=== PATIENT | female | born 1990 | race African-American/Black ===

== ENCOUNTER 2016-09-05 22:06 | Emergency (ER) | payer SELFPAY ==
[~2016-09-05] VITALS: Ht 170.2 cm; Wt 78.0 kg
[~2016-09-05 22:06] MED LIST: METH750T2 PO; PRED20 PO; PROT40TA PO
[2016-09-05 22:08] VITALS: BP 124/80; PULSE 73; RESP 16; TEMP 98.4; O2SAT 100
[2016-09-05] MEDS ORDERED: BACT800T5 PO (23:22)
--- NOTE | 2016-09-05 23:22 | PD ---
HPI Chief Complaint: Complaint Time Seen by Provider: 22:54 Travel History International Travel<30 days: No Contact w/Intl Traveler<30days: No Traveled to known affect area: No History of Present Illness HPI 25-year-old female complains of dysuria frequency for about 1 day or so. Last menstruation was 6 days or so. No fever nausea or vomiting. Onset gradual. Location genitourinary/suprapubic. She states it feels like a UTI she's had once prior. PFSH Past Medical History Blood Disorders: No Cancer: No Cardiovascular Problems: No Diminished Hearing: No Endocrine: No Genitourinary: No Headaches: Yes Immune Disorder: No Musculoskeletal: Yes (SCOLIOSIS, SPINA BIFIDA) Neurologic: Yes (DENNISON'S PALSY) Psychiatric: No Reproductive: No Respiratory: No Tetanus Vaccination: Unknown Influenza Vaccination: No ?: Not LMP: LAST WEEK : 0 Para: 0 Past Surgical History Surgical History: No Previous Surgery Social History Alcohol Use: No Tobacco Use: No Substance Use: No Allergies-Medications (Allergen,Severity, Reaction): Coded Allergies: No Known Allergies (Unverified , 09/05/16) Reported Meds & Prescriptions Reported Meds & Active Scripts Active No Active Prescriptions or Reported Medications Review of Systems Except as stated in HPI: all other systems reviewed are Neg Physical Exam Narrative GENERAL: 25-year-old female no acute distress pleasant SKIN: Focused skin assessment warm/dry. HEAD: Atraumatic. Normocephalic. EYES: Pupils equal and round. No scleral icterus. No injection or drainage. ENT: No nasal bleeding or discharge. Mucous membranes pink and moist. NECK: Trachea midline. No JVD. CARDIOVASCULAR: Regular rate and rhythm. No murmur appreciated. RESPIRATORY: No accessory muscle use. Clear to auscultation. Breath sounds equal bilaterally. GASTROINTESTINAL: Minimal test palpation superior pubic abdomen. No tenderness at McBurney's point. MUSCULOSKELETAL: No obvious deformities. No clubbing. No cyanosis. No edema. NEUROLOGICAL: Awake and alert. No obvious cranial nerve deficits. Motor grossly within normal limits. Normal speech. PSYCHIATRIC: Appropriate mood and affect; insight and judgment normal. Data Data Last Documented VS Vital Signs Date Time Temp Pulse Resp B/P Pulse Ox O2 Delivery O2 Flow Rate FiO2 09/05/16 22:08 98.4 73 16 124/80 100 Vital signs reviewed [facility] Medical Decision Making Medical Screen Exam Complete: Yes Emergency Medical Condition: Yes Differential Diagnosis Constipation, Gastritis, Acute Cholecystitis, Biliary Colic, Pancreatitis, [place] , Hepatitis, Bowel Obstruction, Cystitis, Mesenteric Ischemia, AAA, Appendicitis , Renal Stone/Hydronephrosis, GERD, perforated viscous Narrative Course Case is fairly straightforward. We will treat empirically a cystitis. Return precautions discussed. Urine culture sent. Diagnosis Primary Impression: Cystitis Referrals: Primary Care Physician 2 days Additional Instructions: You have a choice when it comes to health care, and we are glad that you chose [facility]. Hopefully, we have met your expectations on today's visit. You are welcome to return to [facility] at any time, as we are committed to meeting the health care needs of our community. Med/Other Pt SpecificInfo: Prescription(s) given Scripts Sulfamethoxazole-Trimethoprim (Bactrim DS)800-160 Mg Tab1 Tab PO BID #6 TAB Ref 0 Prov:Juan Floyd MD 09/05/16 Disposition: 01 DISCHARGE HOME Condition: Stable Juan Floyd MD Sep 05, 2016 23:22
[2016-09-05] MEDS ORDERED: SULFAMETHOXAZOLE-TRIMETHOPRIM DS 800-160 MG TAB PO ONE (23:30)
== END 2016-09-05 23:48 | disposition home or self-care (01) ==
LOC: NEPD 22:06
DX: N30.90 Cystitis, unspecified without hematuria (principal); B96.20 Unspecified Escherichia coli [E. coli] as the cause of diseases classified elsewhere
CPT/HCPCS: 84703; 87077; 87086; 87186; 99283